=== PATIENT | female | born 1935 | race Two or more races ===

== ENCOUNTER → 2016-11-22 | Outpatient (CLI) | payer MEDICARE, OTHER | END | disposition home or self-care (01) | LOC: Rad HDHVI 10:55 | PROVIDERS: ATTEND Internal Medicine Cardiovascular Disease | DX: I63.9 Cerebral infarction, unspecified (principal); R00.2 Palpitations | CPT/HCPCS: 93880 ==

== ENCOUNTER → 2016-11-30 | Outpatient (CLI) | payer MEDICARE, OTHER | END | disposition home or self-care (01) | LOC: Rad HDHVI 09:58 | PROVIDERS: ATTEND Internal Medicine Cardiovascular Disease | DX: R00.2 Palpitations (principal); R06.02 Shortness of breath | CPT/HCPCS: 93306 ==

== ENCOUNTER → 2017-02-21 | Outpatient (CLI) | payer MEDICARE, OTHER | END | disposition home or self-care (01) | LOC: LAB 10:06 | PROVIDERS: ATTEND Internal Medicine Cardiovascular Disease | DX: E55.9 Vitamin D deficiency, unspecified (principal) | CPT/HCPCS: 36415; 82306; 82310; 83970 ==

== ENCOUNTER → 2018-03-08 | Outpatient (CLI) | payer MEDICARE, OTHER | END | disposition home or self-care (01) | LOC: Rad HDHVI 09:52 | PROVIDERS: ATTEND Internal Medicine Cardiovascular Disease | DX: M85.9 Disorder of bone density and structure, unspecified (principal) | CPT/HCPCS: 77078 ==

== ENCOUNTER → 2018-04-13 | Outpatient (CLI) | payer MEDICARE, OTHER | END | disposition home or self-care (01) | LOC: Rad HDHVI 13:50 | PROVIDERS: ATTEND Internal Medicine Cardiovascular Disease | DX: I34.0 Nonrheumatic mitral (valve) insufficiency (principal); I10 Essential (primary) hypertension; I63.9 Cerebral infarction, unspecified | CPT/HCPCS: 93306 ==

== ENCOUNTER → 2018-05-03 | Outpatient (CLI) | payer MEDICARE, OTHER ==
[~2018-05-03] MED LIST: AGG25C PO; ALEN1TAB32 PO; AMLO1TAB PO; BRIM0.2S2 OP; DORZ2SOL18 EACHEYE
[2018-05-03 09:14] VITALS: BP 143/72
[2018-05-03 09:44] VITALS: BP 151/72
[2018-05-03 12:20] LABS: Basophils # (auto) 0.1 uL; Basophils % (auto) 0.8 % (0.0-2.0); Eosinophils # (auto) 0.1 uL; Eosinophils % (auto) 1.8 % (0.0-7.0); Hematocrit 35.4 % (36.0-46.0); Hemoglobin 12.2 g/dL (12.2-16.2); Lymphocytes % (auto) 24.3 % (10.0-50.0); Mean Corpuscular Hemoglobin 32.6 pg (28.0-32.0); Mean Corpuscular Hgb Conc. 34.5 g/dL (32.0-36.0); Mean Corpuscular Volume 94.4 fL (80.0-100.0); Monocytes # (auto) 0.5 uL; Monocytes % (auto) 5.9 % (0.0-12.0); Neutrophils # (auto) 5.5 uL; Neutrophils % (auto) 67.2 % (37.0-80.0); Nucleated Red Blood Cells % 0.2 %; Platelet Count (auto) 201 10^3/uL (140-450); Red Blood Cells 3.74 10^6/uL (4.0-5.20); Red Cell Distribution Width 12.9 % (11.8-14.3); White Blood Cell 8.1 10^3/uL (4.4-10.8)
[2018-05-03 12:23] LABS: INR 0.92 (0.9-1.15); Partial Thromboplastin Time 25.7 sec (23.78-33.04); Prothrombin Time 9.9 sec (9.27-12.13)
[2018-05-03 12:24] LABS: BUN/Creatinine Ratio 18.9; Calcium 9.4 mg/dL (8.5-10.1); Potassium 3.7 mmol/L (3.5-5.1)
== END | disposition home or self-care (01) ==
LOC: CHF HDHVI 09:05
PROVIDERS: ATTEND Internal Medicine Cardiovascular Disease
DX: Z01.818 Encounter for other preprocedural examination (principal); D64.9 Anemia, unspecified; R79.1 Abnormal coagulation profile; I10 Essential (primary) hypertension; R00.1 Bradycardia, unspecified
CPT/HCPCS: 36415; 80048; 85025; 85610; 85730; 93005; G0463

== ENCOUNTER → 2018-10-09 | Outpatient (CLI) | payer MEDICARE, OTHER ==
[2018-10-09 15:59] LABS: Basophils # (auto) 0.1 uL; Basophils % (auto) 1.3 % (0.0-2.0); Eosinophils # (auto) 0.1 uL; Eosinophils % (auto) 1.7 % (0.0-7.0); Hematocrit 38.1 % (36.0-46.0); Hemoglobin 12.6 g/dL (12.2-16.2); Lymphocytes # (auto) 2.5 uL; Lymphocytes % (auto) 32.7 % (10.0-50.0); Mean Corpuscular Hemoglobin 32.2 pg (28.0-32.0); Mean Corpuscular Hgb Conc. 33.1 g/dL (32.0-36.0); Monocytes # (auto) 0.5 uL; Neutrophils # (auto) 4.4 uL; Neutrophils % (auto) 58.3 % (37.0-80.0); Nucleated Red Blood Cells % 0.8 %; Platelet Count (auto) 224 10^3/uL (140-450); Red Blood Cells 3.92 10^6/uL (4.0-5.20); Red Cell Distribution Width 13.2 % (11.8-14.3); White Blood Cell 7.5 10^3/uL (4.4-10.8)
[2018-10-09 16:11] LABS: Potassium 3.5 mmol/L (3.5-5.1)
[2018-10-09 16:12] LABS: Urine Blood Negative /uL (Negative); Urine Specific Gravity 1.011 (1.001-1.035)
[2018-10-09 16:22] LABS: Albumin 3.8 g/dL (3.4-5.0); Bilirubin, Total 0.4 mg/dL (0.2-1.0); Calcium 10.6 mg/dL (8.5-10.1); Total Protein 7.7 g/dL (6.4-8.2)
[2018-10-09 16:27] LABS: Free T4 (Free Thyroxine) 0.98 ng/dL (0.89-1.76)
== END | disposition home or self-care (01) ==
LOC: LAB 11:51
PROVIDERS: ATTEND Internal Medicine Cardiovascular Disease
DX: Z01.89 Encounter for other specified special examinations (principal); I71.2 Thoracic aortic aneurysm, without rupture; N39.0 Urinary tract infection, site not specified; E03.9 Hypothyroidism, unspecified; E55.9 Vitamin D deficiency, unspecified; D51.9 Vitamin B12 deficiency anemia, unspecified; Z79.899 Other long term (current) drug therapy; R07.89 Other chest pain; I07.1 Rheumatic tricuspid insufficiency
CPT/HCPCS: 36415; 80053; 80061; 81003; 82306; 82607; 83036; 84439; 84443; 85025; 87086; 87088; 87186; 93306